=== PATIENT | female | born 1980 | race Caucasian/White ===

== ENCOUNTER 2023-06-18 21:06 | Emergency (ER) | payer MEDICAID, SELFPAY ==
[2023-06-18] VITALS (12 sets, daily range): BP systolic 156–179; BP diastolic 92–110; PULSE 110–124; RESP 13–25; TEMP 37.3; O2SAT 95–98
--- NOTE | 2023-06-18 21:00 | RT.EKG_ITS ---
APPROVED REPORT Exam: Resting ECG Reason for Exam: chest pain Patient Location: E HR:111 bpm ECG Measurements Heart Rate 111 AXIS MN 147 P 112 QRSd 92 QRS 61 QT 346 T 59 QTc 471 Conclusion Sinus tachycardia...rate> 99 Physician: no stemi
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
[2023-06-18 21:48] LABS: Abs Immature Grans 0.01 10^3/uL (0.0-0.06); Absolute Basophil Count 0.05 10^3/uL (0.0-0.2); Absolute Eosinophil Count 0.02 10^3/uL (0.0-0.7); Absolute Lymphocyte Count 1.55 10^3/uL (1.2-3.4); Absolute Monocyte Count 0.44 10^3/uL (0.1-0.8); Basophils % 1.1; Eosinophils % 0.4; HCT 37.2 % (36.0-46.0); HGB 12.5 g/dL (11.2-15.7); Immature Grans % 0.2; Lymphocytes % 33.2; MCH 29.9 pg (27.0-33.0); MCHC 33.6 % (32.0-36.0); MCV 89 fL (80-95); MPV 8.7 fL (8.0-11.0); Monocytes % 9.4; Neutrophils % 55.7; Platelet Count 305 10^3/uL (130-400); RBC 4.18 10^6/uL (3.93-5.22); RDW 15.4 % (11.7-14.6); WBC 4.67 10^3/uL (4.4-10.8)
[2023-06-18] MEDS: Acetaminophen 500 MG TAB 1000 MG PO (21:51)
[2023-06-18] MEDS: Ketorolac 15 MG/ML VIAL IVP (21:53)
[2023-06-18] MEDS: Normal Saline 1,000 ML 1000 ML IV (21:55)
[2023-06-18 22:02] LABS: ALT 34 U/L (14-59); AST 43 U/L (15-37); Albumin 3.8 g/dL (3.4-5.0); Alkaline Phosphatase 100 U/L (46-116); Anion Gap 10.3 mmol/L (3-11); BUN 11 mg/dL (7-18); Bilirubin, Total 0.6 mg/dL (0.2-1.0); CO2 28.7 mmol/L (21.0-32.0); CREATININE 0.7 mg/dL (0.55-1.02); Calcium 9.2 mg/dL (8.5-10.1); Chloride 96 mmol/L (98-107); Estimated GFR 111.36 (mL/min/1.73m2); Glucose 91 mg/dL (74-106); Potassium 3.7 mmol/L (3.5-5.1); Sodium 135 mmol/L (136-145); Total Protein 7.5 g/dL (6.4-8.2)
[2023-06-18] MEDS: Normal Saline - Diluent 50 ML VIAL IJ (22:53)
[2023-06-18] MEDS: Omnipaque 350 MG/ML 100 ML BTL IJ (22:54)
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
--- NOTE | 2023-06-18 23:43 | NUR.NOTE ---
Referral per Dr. Tariq to Care Management for new PCP as soon as available for repeat cat scan & pet scan for lung nodule. Put the referral in the director of healthcare systems's box for follow up assistance.Nursing Note:
[2023-06-19] MEDS: Ketorolac 15 MG/ML VIAL IVP (00:06)
[2023-06-19] MEDS: Lidocaine 5% Patch 1 PATCH TP (00:06)
== END 2023-06-19 01:03 | disposition home or self-care (01) ==
PROVIDERS: Emergency Provider Student in an Organized Health Care Education/Training Program
DX: S22.42XA Multiple fractures of ribs, left side, initial encounter for closed fracture (principal); F10.229 Alcohol dependence with intoxication, unspecified; Z59.00 Homelessness unspecified; Y09 Assault by unspecified means; R91.1 Solitary pulmonary nodule; Y90.8 Blood alcohol level of 240 mg/100 ml or more; Z72.0 Tobacco use
CPT/HCPCS: 71275; 76604; 80053; 81025; 93005; 93308; 96361; 96374; 99285; 85025; 93010; 99284; J1885; J3490

== ENCOUNTER 2023-06-19 08:24 | Emergency (ER) | payer MEDICAID, SELFPAY ==
[2023-06-19 08:24] VITALS: BP 151/95; PULSE 117; RESP 21; TEMP 36.9; O2SAT 98
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
[2023-06-19] MEDS: LORazepam 2 MG/ML VIAL 1 MG IVP (08:48)
[2023-06-19] MEDS: Lactated Ringers 1,000 ML 1000 ML IV (08:49)
[2023-06-19] MEDS: Buprenorphine/Naloxone 8 mg/2 mg FILM 1 EACH SL (09:20)
[2023-06-19] MEDS: Lidocaine 5% Patch 1 PATCH TP (09:21)
[2023-06-19 10:50] VITALS: BP 168/99; PULSE 118; O2SAT 96
[2023-06-19] MEDS: Acetaminophen 325 MG TAB 650 MG PO (11:01)
[2023-06-19] MEDS: Ibuprofen 600 MG TAB PO (11:01)
[2023-06-19 11:02] VITALS: BP 173/98
== END 2023-06-19 11:04 | disposition home or self-care (01) ==
LOC: ER 11:05
PROVIDERS: Emergency Provider Physician Assistant
DX: F10.239 Alcohol dependence with withdrawal, unspecified (principal); R07.9 Chest pain, unspecified; R00.0 Tachycardia, unspecified; Z59.00 Homelessness unspecified; F11.20 Opioid dependence, uncomplicated; Z72.0 Tobacco use; Z88.0 Allergy status to penicillin; R51.9 Headache, unspecified; R11.2 Nausea with vomiting, unspecified
CPT/HCPCS: 96361; 96374; 99284; J2060

== ENCOUNTER 2023-06-24 06:12 | Emergency (ER) | payer MEDICAID, SELFPAY ==
[2023-06-24 06:13] VITALS: BP 194/173; PULSE 92; RESP 18; TEMP 36.7; O2SAT 95
--- NOTE | 2023-06-24 06:15 | RT.EKG_ITS ---
APPROVED REPORT Exam: Resting ECG Reason for Exam: heart feels bruised Patient Location: E HR:81 bpm ECG Measurements Heart Rate 81 AXIS LA 144 P 77 QRSd 95 QRS 65 QT 417 T 70 QTc 485 Conclusion Sinus rhythm...normal P axis, V-rate 60- 99 Normal sinus rhythm, normal axis, no acute sttw changes no STEMI/ No significant changes from previou s.
[2023-06-24 06:18] VITALS: RESP 18
--- NOTE | 2023-06-24 06:30 | DI.RAD_ITS ---
Exam(s) XR CHEST 2V PA LATERAL EXAM: XR CHEST 2V PA LATERAL CLINICAL HISTORY: rib fractures chest pain TECHNIQUE: 2D digital imaging was performed of the chest. Images were obtained. PA and lateral v iews were obtained. COMPARISON: No exams were available for comparison FINDINGS: MEDIASTINUM: Normal. HEART: Normal. PULMONARY VASCULATURE: Normal. LUNGS: Clear. PLEURAL SPACE: No pleural effusion or pneumothorax. BONE:Within normal limits for the patient's age. There appears to be an old left 7th rib fracture de formity. OTHER FINDINGS:Normal. IMPRESSION: No acute pulmonary findings. DATA REPOSITORY: RADIATION DOSE DELIVERED:
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
[2023-06-24 07:01] LABS: Abs Immature Grans 0.02 10^3/uL (0.0-0.06); Absolute Basophil Count 0.06 10^3/uL (0.0-0.2); Absolute Eosinophil Count 0.13 10^3/uL (0.0-0.7); Absolute Lymphocyte Count 1.55 10^3/uL (1.2-3.4); Absolute Monocyte Count 0.52 10^3/uL (0.1-0.8); Absolute Neutrophil Count 4.17 10^3/uL (1.2-6.7); Basophils % 0.9; HCT 32.9 % (36.0-46.0); HGB 11.1 g/dL (11.2-15.7); Immature Grans % 0.3; MCH 30.2 pg (27.0-33.0); MCHC 33.7 % (32.0-36.0); MCV 90 fL (80-95); MPV 9.2 fL (8.0-11.0); Monocytes % 8.1; Neutrophils % 64.7; Platelet Count 163 10^3/uL (130-400); RBC 3.67 10^6/uL (3.93-5.22); RDW 15.4 % (11.7-14.6); RDW-SD 51.1 fL; WBC 6.45 10^3/uL (4.4-10.8)
[2023-06-24] MEDS: Lidocaine 5% Patch 1 PATCH TP (07:15)
[2023-06-24] MEDS: Azithromycin 250 MG TAB 500 MG PO ×2 (07:15)
[2023-06-24] MEDS: Normal Saline 1,000 ML 1000 ML IV (07:16)
[2023-06-24 07:22] LABS: HCG Qual (Serum) Negative
[2023-06-24 07:24] LABS: ALT 29 U/L (14-59); AST 42 U/L (15-37); Albumin 3.4 g/dL (3.4-5.0); Alkaline Phosphatase 99 U/L (46-116); Anion Gap 8.6 mmol/L (3-11); BUN 7 mg/dL (7-18); Bilirubin, Total 0.9 mg/dL (0.2-1.0); CO2 30.4 mmol/L (21.0-32.0); CREATININE 0.7 mg/dL (0.55-1.02); Calcium 8.7 mg/dL (8.5-10.1); Chloride 96 mmol/L (98-107); ETHANOL BLOOD 227.5 mg/dL (<10); Estimated GFR 111.36 (mL/min/1.73m2); Glucose 93 mg/dL (74-106); Magnesium 1.2 mg/dL (1.8-2.4); Potassium 3.4 mmol/L (3.5-5.1); Sodium 135 mmol/L (136-145); Total Protein 7.1 g/dL (6.4-8.2); Troponin I < 50 ng/L (<or=60)
[2023-06-24 07:42] LABS: Acetaminophen 5 ug/mL (10-30); Salicylate < 2.8 mg/dL (<2.8)
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
[2023-06-24] MEDS: Emtricitabine/Tenofovir 200 mg/300 mg TAB 1 EACH PO (08:12)
[2023-06-24] MEDS: Levonorgestrel 1.5 MG KIT/PACKET PO (08:12)
[2023-06-24] MEDS: Raltegravir Potassium 400 MG TAB PO (08:13)
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
[2023-06-24] MEDS: Ondansetron 4 MG/2 ML VIAL IVP (08:28)
[2023-06-24 08:30] VITALS: BP 172/86
[2023-06-24 08:41] LABS: Bilirubin Negative (Negative); Blood Small (Negative); Clarity Sl Cloudy (Clear); Glucose Negative (Negative); Ketones Negative (Negative); Leukocyte Esterase Small (Negative); Nitrite Positive (Negative); Urobilinogen 0.2 mg/dL (Up to 0.2)
[2023-06-24 08:46] LABS: *AMPHETAMINES SCREEN URINE Negative (Negative); *BARBITURATES SCREEN URINE Negative (Negative); *BENZODIAZEPINES SCREEN URINE Negative (Negative); Bacteria Moderate HPF (Negative); C & S Indicated? C&S Done As Ordered; Cannabinoids THC Negative (Negative); Casts Negative LPF (Negative); Cocaine Screen,Urine Negative (Negative); Crystals Negative HPF (Negative); Epithelial Cells Few HPF (Negative); METHADONE URINE SCREEN Negative (Negative); Mucus Trace (Negative); OPIATES URINE SCREEN Negative (Negative)
[2023-06-24 08:48] LABS: Tricyclic Antidepressants Negative (Negative)
[2023-06-24] MEDS: MAGNESIUM SULFATE 8.12 MEQ, MULTIVITAMIN 10 ML, THIAMINE 100 MG, FOLIC ACID 1 MG in Nor... 334 MG IV (09:13)
[2023-06-24] MEDS: Raltegravir Potassium 400 MG TAB 2000 MG PO (10:56)
[2023-06-24] MEDS: Emtricitabine/Tenofovir 200 mg/300 mg TAB 2 EACH PO (10:56)
[2023-06-25 18:35] LABS: HIV-1/2 Ag & Ab Screen Negative (Negative)
[2023-06-25 18:42] LABS: Hepatitis A Antibody IgM Negative (Negative); Hepatitis B Core Antibody Negative (Negative); Hepatitis B surface Ag Negative (Negative); Hepatitis C Ab w Rflx HCV PCR Negative (Negative)
== END 2023-06-24 12:45 ==
PROVIDERS: Emergency Medicine Emergency Medical Services; Emergency Provider Student in an Organized Health Care Education/Training Program
DX: T76.21XA Adult sexual abuse, suspected, initial encounter (principal); Y04.8XXA Assault by other bodily force, initial encounter; R51.9 Headache, unspecified; R07.9 Chest pain, unspecified; F10.90 Alcohol use, unspecified, uncomplicated
CPT/HCPCS: 123; 36415; 80053; 80307; 86704; 86709; 86803; 87340; 87389; 93005; 96365; 96366; 96367; 96375; 99285; 00123; 70450; 71046; 80320; 80329; 81003; 81015; 83735; 84484; 84703; 85025; 87086; 93010; 99284; J0696; J2405